=== PATIENT | male | born 1930 | race Caucasian/White ===

== ENCOUNTER 2017-02-28 16:04 | Observation (INO) | payer OTHER ==
[~2017-02-28] VITALS: Ht 162.6 cm; Wt 68.7 kg
[~2017-02-28 16:04] MED LIST: 1-ME1LIQ OR; ASPI325T PO; TERA5CAP3 PO; TRAM50 PO
[2017-02-28] MEDS ORDERED: SODIUM CHLORIDE 0.9% FLUSH 10 ML FLUSH IVF PRN (16:15)
[2017-02-28 16:22] VITALS: BP 198/93; PULSE 88; RESP 16; TEMP 98.1; O2SAT 97
[2017-02-28 16:29] LABS: AUTOMATED NEUTROPHIL # 4.2 TH/MM3 (1.8-7.7); BASOPHIL # 0.1 TH/MM3 (0-0.2); BASOPHIL % 0.8 % (0.0-2.0); EOSINOPHIL # 0.2 TH/MM3 (0-0.4); EOSINOPHIL % 2.6 % (0.0-4.0); HEMATOCRIT 49.2 % (39.0-51.0); HEMO FLAGS DIFF FINAL; LYMPH % 24.1 % (9.0-44.0); LYMPHOCYTE # 1.6 TH/MM3 (1.0-4.8); MEAN CELL VOLUME 90.4 FL (80.0-100.0); MEAN CORPUSCULAR HGB CONC 33.2 % (32.0-36.0); MONO % 9.2 % (0.0-8.0); NEUT % 63.3 % (16.0-70.0); PLATELET COUNT 274 TH/MM3 (150-450); RED BLOOD COUNT 5.44 MIL/MM3 (4.50-5.90); RED CELL DISTRIBUTION WIDTH 13.4 % (11.6-17.2); WHITE BLOOD COUNT 6.7 TH/MM3 (4.0-11.0)
[2017-02-28] MEDS ORDERED: AMLO2.5T PO (16:32)
[2017-02-28] MEDS ORDERED: ASPI325T PO (16:32)
[2017-02-28] MEDS ORDERED: TERA5CAP3 PO (16:32)
[2017-02-28 16:35] LABS: CHLORIDE 101 MEQ/L (98-107); POTASSIUM 3.7 MEQ/L (3.5-5.1); SODIUM (NA) 137 MEQ/L (136-145)
--- NOTE | 2017-02-28 16:36 | RADRPT ---
EXAM DATE/TIME: 02/28/2017 16:27 [facility] COMPARISON: No previous studies available for comparison. INDICATIONS : Resolved slurred speech, left facial droop, left arm numbness and tingling. Evaluate for cerebrovasc ular accident. RADIATION DOSE: 61.77 CTDIvol (mGy) MEDICAL HISTORY : Hypertension. Cardiovascular disease SURGICAL HISTORY : Cholecystectomy. Coronary artery stent. ENCOUNTER: Initial ACUITY: 1 day PAIN SCALE: 0/10 LOCATION: cranial TECHNIQUE: Multiple contiguous axial images were obtained of the head. Using automated exposure control and adj ustment of the mA and/or kV according to patient size, radiation dose was kept as low as reasonably a chievable to obtain optimal diagnostic quality images. DICOM format image data is available electro nically for review and comparison. FINDINGS: CEREBRUM: The ventricles are normal for age. No evidence of midline shift, mass lesion, hemorrhage or acute in farction. No extra-axial fluid collections are seen. POSTERIOR FOSSA: The cerebellum and brainstem are intact. The 4th ventricle is midline. The cerebellopontine angle i s unremarkable. EXTRACRANIAL: The visualized portion of the orbits is intact. SKULL: The calvaria is intact. No evidence of skull fracture. CONCLUSION: No acute disease. No evidence of acute infarct, hemorrhage, mass or edema. Agustin Seth MD on February 28, 2017 at 16:34 Board Certified Radiologist. This report was verified electronically.
[2017-02-28 16:38] LABS: ANION GAP 8 MEQ/L (5-15); BICARBONATE 28.3 MEQ/L (21.0-32.0)
--- NOTE | 2017-02-28 16:38 | PD ---
HPI . Dysarthria Chief Complaint: Neuro Symptoms/ Deficits Time Seen by Provider: 16:15 Travel History International Travel<30 days: No Contact w/Intl Traveler<30days: No Traveled to known affect area: No History of Present Illness HPI This patient is brought in ambulatory by his with a chief complaint of a brief episode of dysarthria, left facial droop and left arm tingling. Onset of symptoms was about 12:30 PM today. The symptoms lasted less than an hour. Symptoms have spontaneously resolved but the patient now feels very weak and fatigued. No headache. No palpitations. No chest pain. No alteration in his level of consciousness. No incontinence. No seizure activity. Unknown modifying factors. Symptoms were mild and brief. H&P is mildly limited by language barrier. PFSH Past Medical History Narrative Medical Hypertension and coronary artery disease status post 2 stents in the remote past Hx Anticoagulant Therapy: No Atrial Fibrillation: No Cancer: No Cardiac Catheterization: Yes Cardiovascular Problems: Yes (STENT X 2) High Cholesterol: Yes Cerebrovascular Accident: No Coronary Artery Disease: Yes Diabetes: No Patient Takes Glucophage: No Diminished Hearing: No Glaucoma: No Genitourinary: Yes Hepatitis: No Hiatal Hernia: No Hypertension: Yes Neurologic: No Thyroid Disease: No Tetanus Vaccination: > 5 Years Past Surgical History Abdominal Surgery: Yes (CHOLECCYSTECTOMY) Cardiac Surgery: Yes (STENT PLACED X 2) Cholecystectomy: Yes Coronary Stent: Yes Ear Surgery: No Endocrine Surgery: No Eye Surgery: No Genitourinary Surgery: No Gynecologic Surgery: No Oral Surgery: No Pacemaker: No Thoracic Surgery: No Tonsillectomy: Yes Other Surgery: Yes Social History Alcohol Use: Yes (WINE OCC.) Tobacco Use: No Substance Use: No Allergies-Medications (Allergen,Severity, Reaction): Coded Allergies: nitroglycerin (Unverified Allergy, Severe, Anaphylaxis, 02/28/17) amlodipine (Unverified Allergy, Mild, 02/28/17) UNKNOWN atorvastatin (Unverified Allergy, Mild, MUSCLE PAIN, 02/28/17) gemfibrozil (Unverified Allergy, Mild, MUSCLE PAIN, 02/28/17) nifedipine (Unverified Allergy, Mild, 02/28/17) UNKNOWN pravastatin (Unverified Allergy, Mild, MUSCLE PAIN, 02/28/17) Uncoded Allergies: AFEDITAB (Allergy, Mild, 02/06/10) Reported Meds & Prescriptions Reported Meds & Active Scripts Active Reported Amlodipine (Amlodipine Besylate) 2.5 Mg Tab Unknown Dose PO DAILY Terazosin (Terazosin HCl) 5 Mg Cap 5 Mg PO HS Aspirin 325 Mg Tab 325 Mg PO DAILY Review of Systems Except as stated in HPI: all other systems reviewed are Neg General / Constitutional: No: Fever, Chills Eyes: No: Blurred Vision HENT: No: Headaches Cardiovascular: No: Chest Pain or Discomfort Respiratory: No: Shortness of Breath Gastrointestinal: No: Nausea, Vomiting Neurologic: Positive: Weakness, Focal Abnormalities, Slurred Speech, Paresthesia, No: Dizziness, Syncope, Ataxia, Headache, Change in Mentation, Incontinence, Seizures Physical Exam Narrative GENERAL: Patient is awake and alert and fully oriented. He is in no acute distress. SKIN: warm/dry. No rash or lesions. HEAD: Normocephalic. Atraumatic. EYES: Pupils equal and round. No scleral icterus. No injection or drainage. ENT: No nasal bleeding or discharge. Mucous membranes pink and moist. NECK: Trachea midline. Full range of motion without pain.. CARDIOVASCULAR: Regular rate and rhythm. Heart sounds are normal. RESPIRATORY: No accessory muscle use. Clear to auscultation. Breath sounds equal bilaterally. GASTROINTESTINAL: Abdomen soft. Nontender. Bowel sounds present. Nondistended. MUSCULOSKELETAL: No obvious deformities. NEUROLOGICAL: Awake and alert. No facial droop. Tongue protrudes in the midline. Full and equal motor strength in all 4 extremities. Negative pronator drift. Normal speech. PSYCHIATRIC: Appropriate mood and affect; insight and judgment normal. Data Data Last Documented VS Vital Signs Date Time Temp Pulse Resp B/P (MAP) Pulse Ox O2 Delivery O2 Flow Rate FiO2 02/28/17 16:55 76 16 172/87 (115) 97 Room Air 02/28/17 16:22 98.1 Orders Orders Electrocardiogram (02/28/17 16:15) Prothrombin Time / Inr (Pt) (02/28/17 16:15) Act Partial Throm Time (Ptt) (02/28/17 16:15) Complete Blood Count With Diff (02/28/17 16:15) Comprehensive Metabolic Panel (02/28/17 16:15) Ct Brain W/O Iv Contrast(Rout) (02/28/17 16:15) Chest, Single Ap (02/28/17 16:15) Ecg Monitoring (02/28/17 16:15) Iv Access Insert/Monitor (02/28/17 16:15) Oximetry (02/28/17 16:15) Sodium Chloride 0.9% Flush (Ns Flush) (02/28/17 16:15) Consult Neurology (02/28/17 ) Clopidogrel (Plavix) (02/28/17 17:15) Labs Laboratory Tests Test 02/28/17 16:15 White Blood Count 6.7 TH/MM3 Red Blood Count 5.44 MIL/MM3 Hemoglobin 16.3 GM/DL Hematocrit 49.2 % Mean Corpuscular Volume 90.4 FL Mean Corpuscular Hemoglobin 30.0 PG Mean Corpuscular Hemoglobin Concent 33.2 % Red Cell Distribution Width 13.4 % Platelet Count 274 TH/MM3 Mean Platelet Volume 7.7 FL Neutrophils (%) (Auto) 63.3 % Lymphocytes (%) (Auto) 24.1 % Monocytes (%) (Auto) 9.2 % Eosinophils (%) (Auto) 2.6 % Basophils (%) (Auto) 0.8 % Neutrophils # (Auto) 4.2 TH/MM3 Lymphocytes # (Auto) 1.6 TH/MM3 Monocytes # (Auto) 0.6 TH/MM3 Eosinophils # (Auto) 0.2 TH/MM3 Basophils # (Auto) 0.1 TH/MM3 CBC Comment DIFF FINAL Differential Comment Prothrombin Time 11.0 SEC Prothromb Time International Ratio 1.0 RATIO Activated Partial Thromboplast Time 28.8 SEC Blood Urea Nitrogen 10 MG/DL Creatinine 1.20 MG/DL Random Glucose 108 MG/DL Total Protein 7.6 GM/DL Albumin 3.6 GM/DL Calcium Level 8.3 MG/DL Alkaline Phosphatase 68 U/L Aspartate Amino Transf (AST/SGOT) 14 U/L Alanine Aminotransferase (ALT/SGPT) 19 U/L Total Bilirubin 0.5 MG/DL Sodium Level 137 MEQ/L Potassium Level 3.7 MEQ/L Chloride Level 101 MEQ/L Carbon Dioxide Level 28.3 MEQ/L Anion Gap 8 MEQ/L Estimat Glomerular Filtration Rate 58 ML/MIN MDM Medical Decision Making Medical Screen Exam Complete: Yes Emergency Medical Condition: Yes Interpretation(s) EKG shows a normal sinus rhythm with no acute ischemic change. Differential Diagnosis Differential diagnosis includes but is not limited to TIA, CVA, brain tumor, migraine, anxiety Narrative Course This patient presents with symptoms compatible with a TIA. He had a brief episode of dysarthria, left-sided facial droop and left arm tingling. All symptoms resolved within about an hour. He was left with a feeling of overall weakness and fatigue. He has no previous similar history. His medical history is significant for hypertension and coronary artery disease status post [address] head: No acute disease. No evidence of acute infarct, hemorrhage, mass or edema. CBC & BMP Diagram 02/28/17 16:15 Total Protein 7.6, Albumin 3.6, Calcium Level 8.3 L, Alkaline Phosphatase 68, Aspartate Amino Transf (AST/SGOT) 14 L, Alanine Aminotransferase (ALT/SGPT) 19, Total Bilirubin 0.5 Coags are normal. CXR neg. The chest x-ray was independently reviewed by me. The patient remains asymptomatic. I have discussed disposition with the patient and his . They are agreeable to admission for further evaluation. Physician Communication Physician Communication Dr. Ramirez, neurology, recommends the addition of Plavix. Dr. Suarez will admit. 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
[2017-02-28 16:39] LABS: BLOOD UREA NITROGEN 10 MG/DL (7-18)
[2017-02-28 16:40] LABS: APTT (PATIENT) 28.8 SEC (24.3-30.1)
[2017-02-28 16:41] LABS: ALT (GPT) 19 U/L (12-78)
[2017-02-28 16:42] LABS: AST (GOT) 14 U/L (15-37); GLOMERULAR FILTRATION RATE 58 ML/MIN (>89)
[2017-02-28 16:44] LABS: ALKALINE PHOSPHATASE 68 U/L (45-117); TOTAL BILIRUBIN ADULT 0.5 MG/DL (0.2-1.0)
--- NOTE | 2017-02-28 16:53 | RADRPT ---
EXAM DATE/TIME: 02/28/2017 16:22 [facility] COMPARISON: No previous studies available for comparison. INDICATIONS : CVA. MEDICAL HISTORY : None. SURGICAL HISTORY : None. ENCOUNTER: Initial ACUITY: 1 day PAIN SCORE: 0/10 LOCATION: Bilateral chest FINDINGS: A single view of the chest demonstrates the lungs to be symmetrically aerated without evidence of mas s, infiltrate or effusion. The cardiomediastinal contours are unremarkable. Osseous structures are intact. CONCLUSION: No acute disease. Agustin Seth MD on February 28, 2017 at 16:52 Board Certified Radiologist. This report was verified electronically.
[2017-02-28 16:55] VITALS: BP 172/87; PULSE 76; RESP 16; O2SAT 97
[2017-02-28] MEDS ORDERED: CLOPIDOGREL 75 MG TAB PO ONE (17:15)
[2017-02-28] MEDS ORDERED: MAGNESIUM HYDROXIDE SUSP 30 ML CUP PO PRN (17:30)
[2017-02-28] MEDS ORDERED: NALOXONE HCL 0.4 MG/ML AMP IV PUSH PRN (17:30)
[2017-02-28] MEDS ORDERED: ONDANSETRON HCL 4 MG/2 ML VIAL IVP PRN (17:30)
[2017-02-28] MEDS ORDERED: SODIUM CHLORIDE 0.9% FLUSH 10 ML FLUSH IV FLUSH PRN (17:30)
--- NOTE | 2017-02-28 17:43 | HHI.HP ---
[facility]Staff Admission Diagnosis TIA Diagnoses: (1) TIA (transient ischemic attack) Travel History International Travel<30 Days: No Contact w/Intl Traveler <30 Da: No Traveled to Known Affected Are: No History of Present Illness Mr. Gallardo is an 86 year old male. He came into the hospital today secondary to an acute onset of dysarthria, left facial droop and left facial paresthesias. Hypertensive urgency was also noted from this morning and remains , likely secondary to CVA/TIA phenomenon. At baseline he has hypertension and coronary artery disease and hyperlipidemia. No prior CVA. No heart attacks. All symptoms have resolved. He is feeling at baseline when seen. He is agreeable to be admitted for further workup. No other complaints. No cognitive changes. Review of Systems Constitutional: DENIES: Fatigue, Fever, Chills, Change in appetite Eyes: DENIES: Blurred vision, Diplopia, Eye inflammation Ears, nose, mouth, throat: DENIES: Tinnitus, Hearing loss, Vertigo Respiratory: DENIES: Cough, Wheezing, Shortness of breath Cardiovascular: DENIES: Chest pain, Palpitations, Syncope Gastrointestinal: DENIES: Abdominal pain, Black stools, Bloody stools Musculoskeletal: DENIES: Joint pain, Muscle aches, Stiffness Integumentary: DENIES: Abnormal pigmentation, Nail changes, Pruritus, Rash Hematologic/lymphatic: DENIES: Bruising, Lymphadenopathy Immunologic/allergic: DENIES: Eczema, Urticaria Neurologic: COMPLAINS OF: Headache, Localized weakness, Paresthesias, DENIES: Abnormal gait, Seizures Psychiatric: DENIES: Anxiety, Confusion, Hallucinations Past Family Social History Past Medical History Hypertension Coronary artery disease (2 stents) Hyperlipidemia Past Surgical History 2 coronary stents Cholecystectomy Reported Medications Reported Meds & Active Scripts Active Reported Terazosin (Terazosin HCl) 5 Mg Cap 5 Mg PO HS Aspirin 325 Mg Tab 325 Mg PO DAILY Allergies: Coded Allergies: nitroglycerin (Unverified Allergy, Severe, Anaphylaxis, 02/28/17) amlodipine (Unverified Allergy, Mild, 02/28/17) UNKNOWN atorvastatin (Unverified Allergy, Mild, MUSCLE PAIN, 02/28/17) gemfibrozil (Unverified Allergy, Mild, MUSCLE PAIN, 02/28/17) nifedipine (Unverified Allergy, Mild, 02/28/17) UNKNOWN pravastatin (Unverified Allergy, Mild, MUSCLE PAIN, 02/28/17) Uncoded Allergies: AFEDITAB (Allergy, Mild, 02/06/10) Family History Past history of smoking 3 cigarettes per day, quit 30 years ago Patient drinks approximately 1 cup of alcohol daily No illicit drug abuse Social History Coronary artery disease in father Physical Exam Vital Signs Vital Signs Date Time Temp Pulse Resp B/P (MAP) Pulse Ox O2 Delivery O2 Flow Rate FiO2 02/28/17 16:55 76 16 172/87 (115) 97 Room Air 02/28/17 16:27 (128) 02/28/17 16:22 97 Room Air 02/28/17 16:22 98.1 88 16 198/93 (128) 97 Room Air 02/28/17 16:22 Room Air Physical Exam GENERAL: NAD, A&Ox3 HEAD: Normocephalic. NECK: Supple, trachea midline. No lymphadenopathy. EYES: No scleral icterus. No injection or drainage. CARDIOVASCULAR: Regular rate and rhythm without murmurs, gallops, or rubs. RESPIRATORY: Breath sounds equal bilaterally. No accessory muscle use. GASTROINTESTINAL: Abdomen soft, non-tender, nondistended. MUSCULOSKELETAL: No cyanosis, or edema. SKIN: Warm and dry. NEURO: No focal neurological deficitis. Laboratory Laboratory Tests Test 02/28/17 16:15 White Blood Count 6.7 Red Blood Count 5.44 Hemoglobin 16.3 Hematocrit 49.2 Mean Corpuscular Volume 90.4 Mean Corpuscular Hemoglobin 30.0 Mean Corpuscular Hemoglobin Concent 33.2 Red Cell Distribution Width 13.4 Platelet Count 274 Mean Platelet Volume 7.7 Neutrophils (%) (Auto) 63.3 Lymphocytes (%) (Auto) 24.1 Monocytes (%) (Auto) 9.2 Eosinophils (%) (Auto) 2.6 Basophils (%) (Auto) 0.8 Neutrophils # (Auto) 4.2 Lymphocytes # (Auto) 1.6 Monocytes # (Auto) 0.6 Eosinophils # (Auto) 0.2 Basophils # (Auto) 0.1 CBC Comment DIFF FINAL Differential Comment Prothrombin Time 11.0 Prothromb Time International Ratio 1.0 Activated Partial Thromboplast Time 28.8 Blood Urea Nitrogen 10 Creatinine 1.20 Random Glucose 108 Total Protein 7.6 Albumin 3.6 Calcium Level 8.3 Alkaline Phosphatase 68 Aspartate Amino Transf (AST/SGOT) 14 Alanine Aminotransferase (ALT/SGPT) 19 Total Bilirubin 0.5 Sodium Level 137 Potassium Level 3.7 Chloride Level 101 Carbon Dioxide Level 28.3 Anion Gap 8 Estimat Glomerular Filtration Rate 58 Result Diagram: 02/28/17161402/28/171614 Caprini VTE Risk Assessment Caprini VTE Risk Assessment: Mod/High Risk (score >= 2) VTE Pharm Contraindication: High risk for bleeding Caprini Risk Assessment Model Point Value = 1 Point Value = 2 Point Value = 3 Point Value = 5 Age 41-60 Minor surgery BMI > 25 kg/m2 Swollen legs Varicose veins or History of unexplained or recurrent spontaneous Oral contraceptives or hormone replacement Sepsis (< 1 month) Serious lung disease, including pneumonia (< 1 month) Abnormal pulmonary function Acute myocardial infarction Congestive heart failure (< 1 month) History of inflammatory bowel disease Medical patient at bed rest Age 61-74 Arthroscopic surgery Major open surgery (> 45 min) Laparoscopic surgery (> 45 min) Malignancy Confined to bed (> 72 hours) Immobilizing plaster cast Central venous access Age >= 75 History of VTE Family history of VTE Factor V Leiden Prothrombin [id number] Lupus anticoagulant Anticardiolipin antibodies Elevated serum homocysteine Heparin-induced thrombocytopenia Other congenital or acquired thrombophilia Stroke (< 1 month) Elective arthroplasty Hip, pelvis, or leg fracture Acute spinal cord injury (< 1 month) Prophylaxis Regimen Total Risk Factor Score Risk Level Prophylaxis Regimen 0-1 Low Early ambulation 2 Moderate Order ONE of the following: *Sequential Compression Device (SCD) *Heparin 5000 units SQ BID 3-4 Higher Order ONE of the following medications: *Heparin 5000 units SQ TID *Enoxaparin/Lovenox 40 mg SQ daily (WT < 150 kg, CrCl > 30 mL/min) *Enoxaparin/Lovenox 30 mg SQ daily (WT < 150 kg, CrCl > 10-29 mL/min) *Enoxaparin/Lovenox 30 mg SQ BID (WT < 150 kg, CrCl > 30 mL/min) AND/OR *Sequential Compression Device (SCD) 5 or more Highest Order ONE of the following medications: *Heparin 5000 units SQ TID (Preferred with Epidurals) *Enoxaparin/Lovenox 40 mg SQ daily (WT < 150 kg, CrCl > 30 mL/min) *Enoxaparin/Lovenox 30 mg SQ daily (WT < 150 kg, CrCl > 10-29 mL/min) *Enoxaparin/Lovenox 30 mg SQ BID (WT < 150 kg, CrCl > 30 mL/min) AND *Sequential Compression Device (SCD) Assessment and Plan Problem List: (1) TIA (transient ischemic attack) ICD Code: G45.9 - Transient cerebral ischemic attack, unspecified Status: Acute Assessment and Plan Assessment and plan 86-year-old male admitted secondary to CVA versus TIA Acute dysarthria Acute left facial droop Acute left facial paresthesias Symptoms resolved Neurology consulted Continue daily aspirin Start daily Plavix Follow on telemetry Follow neurologic status MRI of brain Carotid ultrasound Hypertension Allow for elevation overnight Resume baseline treatments in the a.m. Coronary artery disease (2 stents) Hyperlipidemia Follow as an outpatient Monitor on telemetry No complete chest pain DVT prophylaxis SCDs Problem Qualifiers (1) TIA (transient ischemic attack): Qualified Codes: G45.1 - Carotid artery syndrome (hemispheric) Bonilla Suarez MD Feb 28, 2017 17:42
[2017-02-28 17:58] VITALS: BP 171/81; PULSE 66; RESP 16; O2SAT 97
[2017-02-28 18:31] VITALS: BP 186/90; PULSE 80; RESP 18; TEMP 97.2; O2SAT 93
--- NOTE | 2017-02-28 18:43 | EKG ---
Date Performed: 02/28/2017 Time Performed: 16:18:06 PTAGE: 86 years EKG: Sinus rhythm NORMAL ECG PREVIOUS TRACING : 10/08/2006 14.20 Compared to previous tracing, heart rate has increased. DOCTOR: Ricardo Gonsales Interpretating Date/Time 02/28/2017 18:41:55
[2017-02-28 20:00] VITALS: BP 191/96; PULSE 66; PULSE 68; RESP 20; TEMP 98.5; O2SAT 96
--- NOTE | 2017-02-28 21:03 | RADRPT ---
EXAM DATE/TIME: 02/28/2017 20:11 [facility] COMPARISON: No previous studies available for comparison. INDICATIONS : CVA. Left sided facial droop with slurred speech and left sided weakness. MEDICAL HISTORY : Hypertension. Coronary artery disease. SURGICAL HISTORY : Cholecystectomy. Coronary artery stent. ENCOUNTER: Initial ACUITY: 1 day PAIN SCORE: 0/10 LOCATION: Head. TECHNIQUE: Multiplanar, multisequence MRI of the brain was performed without contrast. FINDINGS: There are scattered small punctate subcentimeter infarcts in the right hemisphere including the super ior right frontal lobe and also in the right parieto-occipital region. There is no associated hemorrh age, mass effect or shift. No hydrocephalus. No left-sided infarcts are identified. Pituitary is norm al in size. Globes intact. CONCLUSION: 1. Multiple small subcentimeter punctate infarcts in the right hemisphere as above. No associated hem orrhage or mass effect. Prosper Barba MD on February 28, 2017 at 20:57 Board Certified Radiologist. This report was verified electronically.
[2017-02-28] MEDS: SODIUM CHLORIDE 0.9% FLUSH 10 ML FLUSH IV FLUSH SCH (21:18)
[2017-02-28] MEDS: TERAZOSIN HCL 5 MG CAP PO SCH (21:18)
[2017-02-28] MEDS ORDERED: cloNIDine HCL 0.1 MG TAB PO ONE (22:45)
[2017-03-01] VITALS: BP 164/80; PULSE 69; RESP 20; TEMP 98.4; O2SAT 94
[2017-03-01 04:00] VITALS: BP 160/80; PULSE 63; RESP 20; TEMP 98.3; O2SAT 94
[2017-03-01 06:39] LABS: AUTOMATED NEUTROPHIL # 4.1 TH/MM3 (1.8-7.7); BASOPHIL % 0.6 % (0.0-2.0); EOSINOPHIL # 0.3 TH/MM3 (0-0.4); EOSINOPHIL % 4.4 % (0.0-4.0); HEMO FLAGS DIFF FINAL; LYMPHOCYTE # 1.8 TH/MM3 (1.0-4.8); MEAN CELL VOLUME 90.9 FL (80.0-100.0); MEAN CORPUSCULAR HGB CONC 34.1 % (32.0-36.0); MONO % 10.4 % (0.0-8.0); NEUT % 58.6 % (16.0-70.0); PLATELET COUNT 261 TH/MM3 (150-450); RED BLOOD COUNT 4.84 MIL/MM3 (4.50-5.90); RED CELL DISTRIBUTION WIDTH 13.2 % (11.6-17.2); WHITE BLOOD COUNT 6.9 TH/MM3 (4.0-11.0)
[2017-03-01 06:42] LABS: CHLORIDE 103 MEQ/L (98-107); POTASSIUM 3.6 MEQ/L (3.5-5.1); SODIUM (NA) 138 MEQ/L (136-145)
[2017-03-01 06:46] LABS: ANION GAP 5 MEQ/L (5-15); BICARBONATE 29.6 MEQ/L (21.0-32.0); BLOOD UREA NITROGEN 9 MG/DL (7-18)
[2017-03-01 06:49] LABS: ALT (GPT) 17 U/L (12-78); AST (GOT) 14 U/L (15-37); GLOMERULAR FILTRATION RATE 64 ML/MIN (>89)
[2017-03-01 06:52] LABS: ALKALINE PHOSPHATASE 61 U/L (45-117)
--- NOTE | 2017-03-01 08:25 | RADRPT ---
EXAM DATE/TIME: 03/01/2017 07:45 [facility] COMPARISON: No previous studies available for comparison. INDICATIONS : Cerebrovascular accident. MEDICAL HISTORY : Hypercholesterolemia. Hypertension. Coronary artery disease. SURGICAL HISTORY : Tonsillectomy. Cholecystectomy. Cardiac catheterization. Coronary stent. ENCOUNTER: Initial ACUITY: 2 days PAIN SCORE: 0/10 LOCATION: Bilateral neck PEAK SYSTOLIC VELOCITIES (cm/sec): ICA/CCA RATIO: Right: 0.8 Left: 0.6 ICA: Right: 64 Left: 61 CCA: Right: 83 Left: 98 ECA: Right: 229 Left: 136 VERTEBRAL: Right: 42 antegrade Left: 64 antegrade Elevated flow velocities and ICA/CCA ratios have been found to correlate with increased degrees of vessel stenosis, calculated as percentage of diameter relative to a normal segment of distal ICA/CCA FINDINGS: RIGHT CAROTID: Mild plaque involving the carotid bulb and proximal ICA. No significant stenosis is visualized. The waveforms are within normal limits. LEFT CAROTID: Moderate plaque involving the proximal ICA. No significant stenosis is visualized. The waveforms are within normal limits. VERTEBRAL ARTERIES: Antegrade flow is seen in both vertebral arteries. MISCELLANEOUS: None. CONCLUSION: 1. No hemodynamically significant stenosis involving either carotid artery. 2. Antegrade flow involving both vertebral arteries. Federico Travis Jr., MD on March 01, 2017 at 8:22 Board Certified Radiologist. This report was verified electronically.
[2017-03-01 08:58] VITALS: BP 156/93; PULSE 67; RESP 16; TEMP 98.2; O2SAT 94
[2017-03-01] MEDS: SODIUM CHLORIDE 0.9% FLUSH 10 ML FLUSH IV FLUSH SCH ×2 (10:29→22:16)
[2017-03-01] MEDS: ASPIRIN 325 MG TAB PO SCH (10:30)
[2017-03-01] MEDS: CLOPIDOGREL 75 MG TAB PO SCH (10:30)
[2017-03-01 12:00] VITALS: BP 128/88; PULSE 65; RESP 16; TEMP 98.1; O2SAT 93
--- NOTE | 2017-03-01 15:20 | MB ---
cc: KASSANDRA MARAVILLA M.D. DATE OF CONSULTATION: 03/01/2017 REASON FOR CONSULTATION: He is an 86-year-old seen in neurological consultation regards to left hemiparesis. The patient was admitted yesterday when he developed left-sided weakness, there was some difficulty with his speech and facial weakness. Some numbness especially involving the left arm. History of hypertension. Family at the bedside. He describes that the patient has been fairly healthy in the past with coronary artery disease and stenting. He takes aspirin and no other blood thinners. Also on Terazosin History of hyperlipidemia. PHYSICAL EXAMINATION: IN GENERAL: On exam shows the patient to be alert pleasant, oriented. He is predominantly Yakut-speaking. NEUROLOGIC EXAMINATION: Ocular movements and visual pelayo full. Slight left facial weakness. Very mild left hemiparesis as his engraver ornamental design is weaker on the left in comparison to the right. Left lower extremity also very mildly weak on the bedside exam. Reportedly he has been ambulatory to the bathroom but I did not ambulate the patient. The MRI of brain showed multiple punctate small areas of acute infarct. The right hemisphere and the carotid ultrasound showed no significant disease. He was continued on aspirin and started on Plavix. ASSESSMENT/PLAN: 1. Right hemisphere small areas of ischemic stroke. 2. Left hemiparesis which is much improved. 3. We will request an echocardiogram. 4. His EKG is sinus rhythm. We need to watch and perhaps further monitor and evaluate him for cardiac embolism. Continue with the Plavix that was added to the aspirin for a period of 6 weeks and then reevaluate. 5. Depending upon clinical course we might also suggest a transesophageal echocardiogram. Thank you for asking us to assist in his care.. Kassandra Maravilla MD [facility]/david /2:52 PM /3:08 PM
[2017-03-01 16:00] VITALS: BP 155/95; PULSE 71; RESP 18; TEMP 97.6; O2SAT 93
[2017-03-01 20:00] VITALS: BP 165/80; PULSE 72; PULSE 74; RESP 20; TEMP 98.3; O2SAT 95
[2017-03-01 21:08] LABS: HDL CHOLESTEROL 55.7 MG/DL (40.0-60.0)
[2017-03-01] MEDS: TERAZOSIN HCL 5 MG CAP PO SCH (22:15)
[2017-03-02] VITALS: BP 173/84; PULSE 67; RESP 20; TEMP 97.4; O2SAT 96
[2017-03-02 04:00] VITALS: BP 167/83; PULSE 65; RESP 20; TEMP 96.5; O2SAT 95
[2017-03-02 08:11] VITALS: BP 172/96; PULSE 86; RESP 20; TEMP 98.2; O2SAT 97
[2017-03-02] MEDS: CLOPIDOGREL 75 MG TAB PO SCH (09:20)
[2017-03-02] MEDS: ASPIRIN 325 MG TAB PO SCH (09:20)
[2017-03-02] MEDS: SODIUM CHLORIDE 0.9% FLUSH 10 ML FLUSH IV FLUSH SCH ×2 (09:21→20:26)
--- NOTE | 2017-03-02 11:23 | ECHRPT ---
Indication: CVA/TIA CONCLUSIONS Normal left ventricular size. Mild concentric left ventricular hypertrophy. Trace mitral valve regurgitation. Moderate mitral annular calcification. Aortic valve sclerosis is present. Mild aortic valve stenosis. Aortic valve mean gradient is 16 mmHg. There is trace tricuspid valve regurgitation. Normal estimated pulmonary pressures. The pulmonary valve is not well visualized. BP: 172 / 92 HR: Rhythm: Sinus, PVCs MEASUREMENTS (Male / Female) Normal Values Technical Quality:Fair 2D ECHO LV Diastolic Diameter PLAX 3.6 cm 4.2 - 5.9 / 3.9 - 5.3 cm LV Systolic Diameter PLAX 2.8 cm IVS Diastolic Thickness 1.1 cm 0.6 - 1.0 / 0.6 - 0.9 cm LVPW Diastolic Thickness 1.1 cm 0.6 - 1.0 / 0.6 - 0.9 cm LV Relative Wall Thickness 0.6 LVOT Diameter 1.7 cm Aortic Root Diameter 2.9 cm LA Systolic Diameter LX 2.9 cm 3.0 - 4.0 / 2.7 - 3.8 cm M-MODE AV Cusp Separation MM 1.4 cm DOPPLER AV Peak Velocity 292.0 cm/s AV Peak Gradient 34.1 mmHg AV Mean Gradient 16.0 mmHg AV Velocity Time Integral 49.4 cm LVOT Peak Velocity 115.0 cm/s LVOT Peak Gradient 5.3 mmHg LVOT Velocity Time Integral 21.9 cm AV Area Cont Eq vti 1.0 cm AV Area Cont Eq pk 0.9 cm Mitral E Point Velocity 67.6 cm/s Mitral A Point Velocity 124.0 cm/s Mitral E to A Ratio 0.5 LV E' Lateral Velocity 8.4 cm/s Mitral E to LV E' Lateral Ratio 8.1 LV E' Septal Velocity 6.2 cm/s Mitral E to LV E' Septal Ratio 10.8 TR Peak Velocity 213.0 cm/s TR Peak Gradient 18.1 mmHg PV Peak Velocity 70.7 cm/s PV Peak Gradient 2.0 mmHg FINDINGS LEFT VENTRICLE Normal left ventricular size. Mild concentric left ventricular hypertrophy. The left ventricular systolic function is normal with an estimated ejection fraction in the range of 60-65%. RIGHT VENTRICLE Normal right ventricular size and systolic function. LEFT ATRIUM The left atrial size is normal. RIGHT ATRIUM The right atrial size is normal. ATRIAL SEPTUM Normal atrial septal thickness without atrial level shunting by limited color doppler interrogation. AORTA The aortic root and proximal ascending aorta are normal in size on limited imaging. MITRAL VALVE Trace mitral valve regurgitation. Moderate mitral annular calcification. AORTIC VALVE Aortic valve sclerosis is present. Mild aortic valve stenosis. Aortic valve mean gradient is 16 mmHg. TRICUSPID VALVE There is trace tricuspid valve regurgitation. Normal estimated pulmonary pressures. PULMONARY VALVE The pulmonary valve is not well visualized. VESSELS The inferior vena cava is normal in size. PERICARDIUM No pericardial effusion. Lisandro Ivy MD (Electronically Signed) Final Date:02 March 2017 11:21
--- NOTE | 2017-03-02 11:30 | HHI.PR ---
Subjective Remarks Delayed note from 03/01 Patient very pleasant speak little Cambodian, family at the bedside As per him and his family he is back to his normal situation no residual no facial droop Chest pain or short of breath Objective Vitals Vital Signs Date Time Temp Pulse Resp B/P (MAP) Pulse Ox O2 Delivery O2 Flow Rate FiO2 03/02/17 08:11 98.2 86 20 172/96 (121) 97 03/02/17 04:00 96.5 65 20 167/83 (111) 95 03/02/17 00:00 97.4 67 20 173/84 (113) 96 03/01/17 20:00 98.3 72 20 165/80 (108) 95 03/01/17 20:00 74 03/01/17 16:00 97.6 71 18 155/95 (115) 93 03/01/17 12:00 98.1 65 16 128/88 (101) 93 I/O 03/01/17 03/01/17 03/01/17 03/02/17 03/02/17 03/02/17 07:00 15:00 23:00 07:00 15:00 23:00 Intake Total 120 ml 500 ml 240 ml Balance 120 ml 500 ml 240 ml Intake Oral 120 ml 500 ml 240 ml # Voids 2 4 1 # Bowel Movements 0 Result Diagram: 03/01/17 0555 03/01/17 0555 Objective Remarks GENERAL: This is a well-nourished, well-developed patient, in no apparent distress. SKIN: No rashes, warm and dry HEAD: Atraumatic. Normocephalic. EYES: Pupils equal round and reactive. Extraocular motions intact. No scleral icterus. ENT: Nose without bleeding, or drainage, Airway patent. NECK: Trachea midline. Supple CARDIOVASCULAR: Regular rate and rhythm without murmurs, gallops, or rubs. RESPIRATORY: Fair air entry bilaterally. No wheezes, rales, or rhonchi. GASTROINTESTINAL: Abdomen soft, non-tender, nondistended. Positive bowel sounds MUSCULOSKELETAL: Extremities without clubbing, cyanosis, or edema. Pedal pulses appreciated NEUROLOGICAL: Cranial nerves II-12 intact, Awake and alert oriented 3. Strength 5 out of 5 in all extremities, sensation normal Moves all extremity. 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 Acute dysarthria, Acute left facial droop Symptoms resolved Appreciate neurology consultation Continue daily aspirin Start daily Plavix Follow on telemetry Follow neurologic status MRI of brain personally reviewed by me as well as Carotid ultrasound 2-D echo ordered, and reviewed personally by me normal EF, neurology may want to do ELMER to rule out artesian embolic embolism Hypertension Permissive hypertension followed by Resume blood pressure control Coronary artery disease (2 stents) Hyperlipidemia Follow as an outpatient Monitor on telemetry No complete chest pain DVT prophylaxis SCDs Problem Qualifiers (1) TIA (transient ischemic attack): Qualified Codes: G45.1 - Carotid artery syndrome (hemispheric) Truong Devi MD Mar 02, 2017 11:30
[2017-03-02 12:01] VITALS: BP 164/89; PULSE 88; RESP 18; TEMP 97.4; O2SAT 100
[2017-03-02 16:00] VITALS: BP 163/86; PULSE 91; RESP 20; TEMP 97.5; O2SAT 96
--- NOTE | 2017-03-02 17:17 | HHI.PR ---
Subjective Remarks denied any new cc/o no weakness or speach issue Objective Vitals Vital Signs Date Time Temp Pulse Resp B/P (MAP) Pulse Ox O2 Delivery O2 Flow Rate FiO2 03/02/17 16:00 97.5 91 20 163/86 (111) 96 03/02/17 12:01 97.4 88 18 164/89 (114) 100 03/02/17 08:11 98.2 86 20 172/96 (121) 97 03/02/17 04:00 96.5 65 20 167/83 (111) 95 03/02/17 00:00 97.4 67 20 173/84 (113) 96 03/01/17 20:00 98.3 72 20 165/80 (108) 95 03/01/17 20:00 74 I/O 03/01/17 03/01/17 03/01/17 03/02/17 03/02/17 03/02/17 07:00 15:00 23:00 07:00 15:00 23:00 Intake Total 120 ml 500 ml 240 ml 480 ml Balance 120 ml 500 ml 240 ml 480 ml Intake Oral 120 ml 500 ml 240 ml 480 ml # Voids 2 4 1 # Bowel Movements 0 Result Diagram: 03/01/17 0555 03/01/17 0555 Objective Remarks GENERAL: This is a well-nourished, well-developed patient, in no apparent distress. SKIN: No rashes, warm and dry HEAD: Atraumatic. Normocephalic. EYES: Pupils equal round and reactive. Extraocular motions intact. No scleral icterus. ENT: Nose without bleeding, or drainage, Airway patent. NECK: Trachea midline. Supple CARDIOVASCULAR: Regular rate and rhythm without murmurs, gallops, or rubs. RESPIRATORY: Fair air entry bilaterally. No wheezes, rales, or rhonchi. GASTROINTESTINAL: Abdomen soft, non-tender, nondistended. Positive bowel sounds MUSCULOSKELETAL: Extremities without clubbing, cyanosis, or edema. Pedal pulses appreciated NEUROLOGICAL: Cranial nerves II-12 intact, Awake and alert oriented 3. Strength 5 out of 5 in all extremities, sensation normal Moves all extremity. 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 Acute dysarthria, Acute left facial droop Symptoms resolved Appreciate neurology consultation Continue daily aspirin Start daily Plavix Follow on telemetry Follow neurologic status MRI of brain personally reviewed by me as well as Carotid ultrasound 2-D echo ordered, and reviewed personally by me normal EF, neurology may want to do ELMER to rule out artesian embolic embolism Hypertension Permissive hypertension followed by Resume blood pressure control Coronary artery disease (2 stents) Hyperlipidemia Follow as an outpatient Monitor on telemetry No complete chest pain DVT prophylaxis SCDs Problem Qualifiers (1) TIA (transient ischemic attack): Qualified Codes: G45.1 - Carotid artery syndrome (hemispheric) Truong Devi MD Mar 02, 2017 17:17
[2017-03-02] MEDS ORDERED: ACETAMINOPHEN/HYDROcodone 325 MG/5 MG TAB PO PRN (19:00)
[2017-03-02 20:00] VITALS: BP 178/82; PULSE 80; RESP 18; TEMP 89.1; O2SAT 97
[2017-03-02] MEDS: TERAZOSIN HCL 5 MG CAP PO SCH (20:23)
[2017-03-03] VITALS: BP 181/95; PULSE 62; RESP 20; TEMP 98; O2SAT 96
[2017-03-03 04:00] VITALS: BP 152/90; PULSE 78; RESP 20; TEMP 97.7; O2SAT 97
[2017-03-03 08:00] VITALS: BP 184/94; PULSE 66; RESP 18; TEMP 97.1; O2SAT 94
[2017-03-03] MEDS: CLOPIDOGREL 75 MG TAB PO SCH (09:00)
[2017-03-03] MEDS: SODIUM CHLORIDE 0.9% FLUSH 10 ML FLUSH IV FLUSH SCH (09:00)
[2017-03-03] MEDS: ASPIRIN 325 MG TAB PO SCH (09:00)
[2017-03-03] MEDS ORDERED: ENALAPRILAT 1.25 MG/ML VIAL IV PUSH PRN (11:00)
[2017-03-03] MEDS ORDERED: AMLO5 PO (11:08)
[2017-03-03] MEDS ORDERED: PLAV75TA29 PO (11:08)
[2017-03-03] MEDS ORDERED: PRAV20TA2 PO (11:09)
[2017-03-03] MEDS ORDERED: amLODIPine BESYLATE 5 MG TAB PO SCH (11:15)
[2017-03-03] MEDS ORDERED: MAGICADU2 SWISH-SWAL (11:30)
[2017-03-03] MEDS ORDERED: HYDR-3516 PO (11:30)
--- NOTE | 2017-03-03 11:31 | HHI.DS ---
Discharge Summary Admission Date Feb 28, 2017 at 17:13 Discharge Date: Mar 03, 2017 Admitting Diagnosis TIA (1) TIA (transient ischemic attack) ICD Code: G45.9 - Transient cerebral ischemic attack, unspecified Status: Acute Procedures Non- Brief History - From Admission Mr. Gallardo is an 86 year old male. He came into the hospital today secondary to an acute onset of dysarthria, left facial droop and left facial paresthesias. Hypertensive urgency was also noted from this morning and remains , likely secondary to CVA/TIA phenomenon. At baseline he has hypertension and coronary artery disease and hyperlipidemia. No prior CVA. No heart attacks. All symptoms have resolved. He is feeling at baseline when seen. He is agreeable to be admitted for further workup. No other complaints. No cognitive changes. CBC/BMP: 03/01/17 0555 03/01/17 0555 Significant Findings Laboratory Tests Test 02/28/17 16:15 03/01/17 05:55 Monocytes (%) (Auto) 9.2 % (0.0-8.0) 10.4 % (0.0-8.0) Random Glucose 108 MG/DL (74-106) Calcium Level 8.3 MG/DL (8.5-10.1) 8.0 MG/DL (8.5-10.1) Aspartate Amino Transf (AST/SGOT) 14 U/L (15-37) 14 U/L (15-37) Estimat Glomerular Filtration Rate 58 ML/MIN (>89) 64 ML/MIN (>89) Eosinophils (%) (Auto) 4.4 % (0.0-4.0) Albumin 3.1 GM/DL (3.4-5.0) LDL Cholesterol 111 MG/DL (0-99) PE at Discharge GENERAL: This is a well-nourished, well-developed patient, in no apparent distress. SKIN: No rashes, warm and dry HEAD: Atraumatic. Normocephalic. EYES: Pupils equal round and reactive. Extraocular motions intact. No scleral icterus. ENT: Nose without bleeding, or drainage, Airway patent. NECK: Trachea midline. Supple CARDIOVASCULAR: Regular rate and rhythm without murmurs, gallops, or rubs. RESPIRATORY: Fair air entry bilaterally. No wheezes, rales, or rhonchi. GASTROINTESTINAL: Abdomen soft, non-tender, nondistended. Positive bowel sounds MUSCULOSKELETAL: Extremities without clubbing, cyanosis, or edema. Pedal pulses appreciated NEUROLOGICAL: Cranial nerves II-12 intact, Awake and alert oriented 3. Strength 5 out of 5 in all extremities, sensation normal Moves all extremity. Normal speech.no focal neurological deficit Hospital Course Patient admitted with right hemispheric small ischemic stroke with left sided hemiparesis acute dysarthria and left facial droop, symptom resolved, patient placed on aspirin and Plavix MRI of the brain and carotid ultrasound has been done and reviewed by neurology and primary team 2-D echo has been ordered as well permissive hypertension has been allowed followed by resuming blood pressure control statin. Patient had a history of coronary artery disease with 2 stents. At the day of discharge very lengthy discussion with the patient and his son has been done patient hasPlan: To work on one of his tooth, I explained to him he would need to talk to his dentist and once he noted date of the procedure he can coordinate with his neurology he may need to stop 5 days prior to the procedure however since he doesn't know when that date will be I do not recommend stopping aspirin and Plavix at this point. Pt Condition on Discharge: Fair Discharge Disposition: Discharge Home Discharge Time: > 30 minutes Discharge Instructions DIET: Follow Instructions for: Heart Healthy Diet Activities you can perform: Weight Bearing as Eduardo Follow up Referrals: Neurology - 1 Week with Buzz Smith MD New Medications: Mkvxqotu-Awwdshfstqzmkqh-Araqdqeek Liq (Magic Mouthwash Adult Liq) 120 Ml Susp 10 ML SWISH-SWAL ACHS for Mouth sores, #120 ML 0 Refills Each 5mL contains: Nystatin 200,000units, Diphenhydramine 4.25mg, Viscous Lidocaine 10mg, Rose syrup 0.8 mL Pravastatin (Pravastatin) 20 Mg Tab 20 MG PO DAILY for Cholesterol Management, #30 TAB 0 Refills Amlodipine (Norvasc) 5 Mg Tab 5 MG PO DAILY for htn, #30 TAB Clopidogrel (Plavix) 75 Mg Tab 75 MG PO DAILY for tia, #30 TAB Hydrocodone-Acetaminophen (Hydrocodone-Acetaminophen) 5-325 mg Tab 1 TAB PO Q6H PRN for pain, #15 TAB Continued Medications: Aspirin (Aspirin) 325 Mg Tab 325 MG PO DAILY, #30 TAB 0 Refills Terazosin (Terazosin) 5 Mg Cap 5 MG PO HS, #30 CAP 0 Refills Truong Devi MD Mar 03, 2017 11:31
[2017-03-03 12:00] VITALS: PULSE 94; RESP 18; TEMP 97.1; O2SAT 96
[2017-03-03 12:06] VITALS: BP 152/78
== END 2017-03-03 13:00 | disposition home or self-care (01) ==
LOC: PHED 16:04 → PHEDA 17:13 → PH3A 18:25
PROVIDERS: ADMIT Hospitalist; ATTEND Hospitalist
DX: G45.1 Carotid artery syndrome (hemispheric) (principal); I16.0 Hypertensive urgency; I25.10 Atherosclerotic heart disease of native coronary artery without angina pectoris; E78.00 Pure hypercholesterolemia, unspecified; I10 Essential (primary) hypertension; E78.5 Hyperlipidemia, unspecified; Z87.891 Personal history of nicotine dependence; Z95.5 Presence of coronary angioplasty implant and graft; Z79.899 Other long term (current) drug therapy; Z79.82 Long term (current) use of aspirin
CPT/HCPCS: 70450; 70551; 71010; 80053; 80061; 85025; 85610; 85730; 93005; 93306; 93880; 99285; G0378